=== PATIENT | male | born 2000 | race Hispanic/Latino ===

== ENCOUNTER 2024-01-09 21:44 | Emergency (ER) | payer SELFPAY ==
[2024-01-10] MEDS ORDERED: Ibuprofen 200 MG TAB ONE (00:11)
== END 2024-01-10 00:21 | disposition home or self-care (01) ==
LOC: CSHERS 21:44
DX: S09.90XA Unspecified injury of head, initial encounter (principal); W22.8XXA Striking against or struck by other objects, initial encounter; Y92.219 Unspecified school as the place of occurrence of the external cause
CPT/HCPCS: 70450; 72125